=== PATIENT | male | born 1950 | race Caucasian/White ===

== ENCOUNTER → 2016-06-03 | Outpatient (CLI) | payer OTHER ==
[~2016-06-03] MED LIST: COZAAR50 MG PO
== END | disposition home or self-care (01) ==
LOC: CDC 09:28
DX: Z01.810 Encounter for preprocedural cardiovascular examination (principal)
CPT/HCPCS: 93000

== ENCOUNTER 2016-06-13 07:15 | Inpatient (IN) | payer OTHER ==
[~2016-06-13] VITALS: Ht 172.7 cm; Wt 85.8 kg
[~2016-06-13 07:15] MED LIST changes: +ASPIR 8181 M1 PO; +CIALIS2.5 MG PO; +LOSARTAN POTASS50 MG PO; +PRAVASTATIN SOD40 MG PO
[2016-06-13 08:08] VITALS: BP 166/88
[2016-06-13] MEDS ORDERED: HYDROCODON-ACE1 EAC7 PO (19:27)
[2016-06-13 20:31] VITALS: BP 115/64
[2016-06-14 01:42] VITALS: BP 115/60
[2016-06-14 04:56] VITALS: BP 121/59
[2016-06-14 08:54] VITALS: BP 127/63
[2016-06-14 11:27] VITALS: BP 122/58
== END 2016-06-14 14:05 | disposition home or self-care (01) | DRG 39 ==
LOC: 4EAST 07:15 → 2SOUTH 07:15 → 4EAST 20:16
PROC: 03CN0ZZ Extirpation of Matter from Left External Carotid Artery, Open Approach (ICD-10-PCS; principal; 2016-06-13)
PROC: 03UN0KZ Supplement Left External Carotid Artery with Nonautologous Tissue Substitute, Open Approach (ICD-10-PCS; principal; 2016-06-13)
PROC: 03CL0ZZ Extirpation of Matter from Left Internal Carotid Artery, Open Approach (ICD-10-PCS; principal; 2016-06-13)
PROC: 03CJ0ZZ Extirpation of Matter from Left Common Carotid Artery, Open Approach (ICD-10-PCS; principal; 2016-06-13)
DX: I65.23 Occlusion and stenosis of bilateral carotid arteries (principal); Z87.891 Personal history of nicotine dependence; I10 Essential (primary) hypertension; E78.5 Hyperlipidemia, unspecified; Z86.73 Personal history of transient ischemic attack (TIA), and cerebral infarction without residual deficits
CPT/HCPCS: 93005; C1768; J0690; J1644; J1650; J2250; J2720; J2795; J3010